=== PATIENT | male | born 1950 | race Caucasian/White ===

== ENCOUNTER 2016-10-28 13:10 | Emergency (ER) | payer MEDICARE ==
[2016-10-28] MEDS ORDERED: LIDOCAINE 1% 10 ML VIAL INJ ONE (13:17)
--- NOTE | 2016-10-28 13:38 | ED.PDOC ---
History of Present Illness - General Chief Complaint: Laceration Stated Complaint: r leg laceration Time Seen by Provider: 10/28/16 13:38 Source: patient Exam Limitations: no limitations - History of Present Illness Initial Comments: Tanmay Garsia 66 y/o male stated while working on his trailer crank which was slightly bent and it ricocheted was hit on the right leg noticed small laceration with bleeding profusely stating taking plavix and aspirin. Timing/Duration: just prior to arrival Severity: moderate Location: extremities - right leg Improving Factors: other - pressure dressing Worsening Factors: nothing Associated Symptoms: denies symptoms Allergies/Adverse Reactions: Allergies NO KNOWN ALLERGY Allergy (Verified 10/28/16 14:02) Review of Systems - Review of Systems Constitutional: States: no symptoms reported EENTM: States: no symptoms reported Respiratory: States: no symptoms reported Cardiology: States: no symptoms reported Gastrointestinal/Abdominal: States: no symptoms reported Genitourinary: States: no symptoms reported Musculoskeletal: States: no symptoms reported Skin: States: see HPI Neurological: States: no symptoms reported Endocrine: States: no symptoms reported Hematologic/Lymphatic: States: no symptoms reported Past Medical History (General) - Patient Medical History Hx Cardiac Disorders: Yes - CAD Surgical History: other - cardiac stent - Social History Hx Tobacco Use: No Hx Chewing Tobacco Use: No Hx Alcohol Use: No Hx Substance Use: No Hx Depression: No Feels Threatened In Home Enviroment: No Feels Threatened In a Relationship: No Hx Physical Abuse: No Hx Emotional Abuse: No - Activities of Daily Living Patient Lives Alone: No - Family Medical History - Family History Father Hx Family Hypertension: Yes Hx Cardiac Disease: Yes Physical Exam - Physical Exam General Appearance: Alert, No apparent distress Eyes, Ears, Nose, Throat Exam: PERRL/EOMI, normal ENT inspection, TMs normal Neck: non-tender, full range of motion, supple Cardiovascular/Chest: normal peripheral pulses, regular rate, rhythm, no murmur Respiratory: chest non-tender, lungs clear Gastrointestinal/Abdominal: normal bowel sounds, non tender, soft, no organomegaly Back Exam: normal inspection Extremity: normal range of motion, non-tender Neurologic: no motor/sensory deficits, alert, normal mood/affect, oriented x 3 Skin Exam: warm/dry, normal color Skin Problem Location: lower extremities - right leg Skin Character: other - small punctured wound skin right leg 0.5 cm Lymphatic: no adenopathy Progress - EKG/XRAY/CT XRAY: leg - right -no fracture or foreign body Departure - Departure Clinical Impression: Puncture wound Time of Disposition: 14:49 Disposition: Discharge to Home or Self Care Condition: Good Departure Forms: ED Discharge - Pt. Copy, Patient Portal Self Enrollment Instructions: DI for Puncture Wound Additional Instructions: RETURN TO EMERGENCY ROOM NEEDED;Elevate right leg 20 degrees at bedtime; continue with home meds
[2016-10-28] MEDS ORDERED: TETANUS,DIPHTHERIA,PERTUSSIS 1 EA SYG IM ONE (14:04)
--- NOTE | 2016-10-28 14:55 | RAD ---
EXAM DESCRIPTION: Tibia/Fibula,Right CLINICAL HISTORY: 66 years Male ,pain COMPARISON: None. TECHNIQUE: Two views of the right tibia and fibula. FINDINGS: No acute fractures or dislocations are identified. No osseous destructive lesions. There is spurring of the tibial eminences. There appears to be bandage material along the anterior portion of the mid tibia. IMPRESSION: No acute fracture is identified. Electronically signed by: Eze Tineo MD 10/28/2016 2:55 PM CDT
[2016-10-28 15:05] VITALS: BP 141/90; O2SAT 99
[2016-10-28 15:08] VITALS: TEMP 98.9
== END 2016-10-28 15:05 | disposition home or self-care (01) ==
LOC: ER 13:10
DX: S81.831A Puncture wound without foreign body, right lower leg, initial encounter (principal); I25.10 Atherosclerotic heart disease of native coronary artery without angina pectoris; Z23 Encounter for immunization; Z98.61 Coronary angioplasty status; Z79.02 Long term (current) use of antithrombotics/antiplatelets; Z79.82 Long term (current) use of aspirin; W26.8XXA Contact with other sharp object(s), not elsewhere classified, initial encounter; Y92.9 Unspecified place or not applicable